=== PATIENT | female | born 2005 ===

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

== ENCOUNTER → 2023-01-11 | Outpatient (CLI) | payer OTHER ==
[2023-01-11 10:39] LABS: ALT/SGPT 20 U/L (7.0-40); AST/SGOT 20 U/L (<34); TRIGLYCERIDES LEVEL 276 MG/DL (<150)
[2023-01-11 10:43] LABS: HCG, SERUM QUALITATIVE NEGATIVE (NEGATIVE)
== END ==
LOC: M WUC 08:27
DX: Z79.899 Other long term (current) drug therapy (principal)